=== PATIENT | female | born 1955 | race African-American/Black ===

== ENCOUNTER 2017-12-31 17:11 | Inpatient (IN) | payer OTHER ==
[2017-12-31] MEDS: FUROSEMIDE 40 MG TAB PO (18:54)
[2017-12-31] MEDS ORDERED: GLUCOSE GEL 15 GRAM TUBE BUCCAL (19:00)
[2017-12-31] MEDS ORDERED: GLUCOSE GEL 15 GRAM TUBE PO ×2 (19:00)
[2017-12-31] MEDS ORDERED: DEXTROSE 50% 50 ML SYRINGE IV ×2 (19:00)
[2017-12-31] MEDS ORDERED: GLUCAGON 1 MG INJ IM (19:00)
[2017-12-31] MEDS ORDERED: hydrALAzine 20 MG INJ IV (20:00)
[2017-12-31] MEDS: LISINOPRIL 20 MG TAB PO (20:49)
[2017-12-31] MEDS: GABAPENTIN 300 MG CAP PO (20:49)
[2017-12-31] MEDS: HYDROCODONE/APAP (10/325) TAB PO (20:49)
[2017-12-31] MEDS: ATORVASTATIN 20 MG TAB PO (20:49)
[2017-12-31] MEDS: INSULIN ASPART [NOVOLOG] 3 ML PEN SC (20:50)
[2017-12-31] MEDS: ENOXAPARIN 100 MG/ML SYG SC (20:56)
[2018-01-01] MEDS: ACCU-CHEK XX (01:34)
[2018-01-01] MEDS: PANTOPRAZOLE (EC) 40 MG TAB PO (05:39)
[2018-01-01] MEDS: FUROSEMIDE 40 MG TAB PO (05:39)
[2018-01-01] MEDS: HYDROCODONE/APAP (5/325) TAB PO (05:44)
[2018-01-01 07:47] LABS: ADD MAN DIFF? NO
[2018-01-01 07:53] LABS: ABNORMAL IP MESSAGE 1; BASOPHILS % 0.6 % (0.0-2.0); EOSINOPHILS # 0.5 10^3/ul (0.0-0.5); HEMOGLOBIN 11.9 g/dl (12.0-16.0); LYMPHOCYTES # 1.5 10^3/ul (0.8-2.9); LYMPHOCYTES % 23.6 % (15.0-51.0); MEAN CORPUSCULAR HEMOGLOBIN 20.7 pg (29.0-33.0); MEAN CORPUSCULAR VOLUME 71.2 fl (82.0-101.0); MEAN PLATELET VOLUME 10.7 fl (7.4-10.4); MONOCYTE # 0.7 10^3/ul (0.3-0.9); MONOCYTES % 10.6 % (0.0-11.0); NEUTROPHIL # 3.7 10^3/ul (1.6-7.5); NEUTROPHILS % 57.6 % (39.0-77.0); NUCLEATED RED BLOOD CELLS # 0.1 10^3/ul (0.0-0.0); NUCLEATED RED BLOOD CELLS% 0.8 /100WBC (0.0-0.0); PLATELET COUNT 284 10^3/UL (140-415); RED BLOOD COUNT 5.76 10^6/ul (4.20-5.40)
[2018-01-01 07:53] LABS: WHITE BLOOD COUNT 6.4 10^3/ul (4.8-10.8)
[2018-01-01] MEDS: INSULIN ASPART [NOVOLOG] 3 ML PEN SC ×4 (07:55→21:00)
[2018-01-01 07:57] LABS: POSITIVE DIFF @See below
[2018-01-01 08:15] LABS: BLOOD UREA NITROGEN 15 mg/dl (7-20); CALCIUM 8.7 mg/dl (8.4-10.2); CHLORIDE 97 mmol/L (97-110); CREATININE 1.05 mg/dl (0.44-1.00); GLUCOSE 77 mg/dl (70-220); POTASSIUM 4.3 mmol/L (3.5-5.1); SODIUM 144 mmol/L (135-144)
[2018-01-01] MEDS: HYDROCODONE/APAP (10/325) TAB PO ×2 (08:26→22:12)
[2018-01-01] MEDS: ASPIRIN (EC) 81 MG TAB PO (08:26)
[2018-01-01] MEDS: GABAPENTIN 300 MG CAP PO ×2 (08:26→22:11)
[2018-01-01] MEDS: LISINOPRIL 20 MG TAB PO ×2 (08:27→22:12)
[2018-01-01] MEDS: AMLODIPINE 5 MG TAB PO (08:27)
[2018-01-01] MEDS: ENOXAPARIN 100 MG/ML SYG SC ×2 (08:32→22:21)
[2018-01-01 08:35] LABS: ANION GAP 9 (8-16)
[2018-01-01 08:36] LABS: CARBON DIOXIDE 42 mmol/L (21-31)
[2018-01-01] MEDS: FUROSEMIDE 40 MG INJ IV (17:46)
[2018-01-01 19:47] LABS: ADD UMIC NO; UR ASCORBIC ACID NEGATIVE (NEGATIVE); UR BILIRUBIN (Dip) NEGATIVE (NEGATIVE); UR BLOOD (Dip) NEGATIVE (NEGATIVE); UR CLARITY CLEAR (CLEAR); UR COLOR COLORLESS (YELLOW); UR GLUCOSE (Dip) NEGATIVE (NEGATIVE); UR KETONES (Dip) NEGATIVE (NEGATIVE); UR LEUKOCYTE ESTERASE (Dip) NEGATIVE Leu/ul (NEGATIVE); UR NITRITE (Dip) NEGATIVE (NEGATIVE); UR SPECIFIC GRAVITY (Dip) 1.004 (1.003-1.030); UR TOTAL PROTEIN (Dip) NEGATIVE (NEGATIVE); UR UROBILINOGEN (Dip) NEGATIVE (NEGATIVE)
[2018-01-01] MEDS: ALBUTEROL/IPRATROPIUM (NEB) 3 ML AMP HHN ×2 (20:33→20:34)
[2018-01-01] MEDS: ATORVASTATIN 20 MG TAB PO (22:11)
[2018-01-02 00:03] LABS: Arterial Base Excess 14.9 mmol/L (-3.0-3); Arterial Blood Gas Oxygen Sat 90.2 mmHG (95.0-98.0); Arterial COHb 1.9 % (0.0-3.0); Arterial HCO3 41.3 mmol/L (22.0-26.0); Arterial MetHb 0.5 % (0.0-1.5); Arterial Total Hemglobin 13.4 g/dl (12.0-18.0); Arterial pCO2 58.3 mmhg (35-45); MODE NASAL CANNULA; Site Right Brachial
[2018-01-02] MEDS: ALBUTEROL/IPRATROPIUM (NEB) 3 ML AMP HHN ×6 (00:50→20:26)
[2018-01-02] MEDS: ACCU-CHEK XX (02:00)
[2018-01-02] MEDS: ACETAZOLAMIDE 250 MG TAB PO ×3 (02:22→20:39)
[2018-01-02] MEDS: HYDROCODONE/APAP (5/325) TAB PO (05:22)
[2018-01-02] MEDS: PANTOPRAZOLE (EC) 40 MG TAB PO (05:22)
[2018-01-02] MEDS: FUROSEMIDE 40 MG INJ IV (05:30)
[2018-01-02 07:33] LABS: ADD MAN DIFF? NO
[2018-01-02 07:36] LABS: WHITE BLOOD COUNT 6.4 10^3/ul (4.8-10.8)
[2018-01-02 07:36] LABS: ABNORMAL IP MESSAGE 1; BASOPHILS % 0.6 % (0.0-2.0); EOSINOPHILS # 0.4 10^3/ul (0.0-0.5); EOSINOPHILS % 6.3 % (0.0-7.0); HEMATOCRIT 43.8 % (37.0-47.0); HEMOGLOBIN 12.3 g/dl (12.0-16.0); LYMPHOCYTES # 1.7 10^3/ul (0.8-2.9); LYMPHOCYTES % 26.6 % (15.0-51.0); MEAN CORPUSCULAR HEMOGLOBIN 20.1 pg (29.0-33.0); MEAN CORPUSCULAR HGB CONC 28.1 g/dl (32.0-37.0); MEAN CORPUSCULAR VOLUME 71.6 fl (82.0-101.0); MONOCYTE # 0.7 10^3/ul (0.3-0.9); MONOCYTES % 10.4 % (0.0-11.0); NEUTROPHIL # 3.5 10^3/ul (1.6-7.5); NEUTROPHILS % 55.5 % (39.0-77.0); NUCLEATED RED BLOOD CELLS% 0.3 /100WBC (0.0-0.0); PLATELET COUNT 293 10^3/UL (140-415); RED BLOOD COUNT 6.12 10^6/ul (4.20-5.40); RED CELL DISTRIBUTION WIDTH 23.9 % (11.5-14.5)
[2018-01-02 07:39] LABS: POSITIVE DIFF @See below
[2018-01-02] MEDS: INSULIN ASPART [NOVOLOG] 3 ML PEN SC ×4 (07:55→20:54)
[2018-01-02 07:59] LABS: PHOSPHORUS 5.3 mg/dl (2.5-4.9)
[2018-01-02 07:59] LABS: BLOOD UREA NITROGEN 16 mg/dl (7-20); CALCIUM 9.2 mg/dl (8.4-10.2); CHLORIDE 92 mmol/L (97-110); CREATININE 1.27 mg/dl (0.44-1.00); GLUCOSE 100 mg/dl (70-220); MAGNESIUM 1.7 mg/dl (1.7-2.5); POTASSIUM 4.1 mmol/L (3.5-5.1); SODIUM 143 mmol/L (135-144)
[2018-01-02 08:06] LABS: ANION GAP 16 (8-16)
[2018-01-02 08:10] LABS: CARBON DIOXIDE 39 mmol/L (21-31)
[2018-01-02] MEDS: ASPIRIN (EC) 81 MG TAB PO (08:26)
[2018-01-02] MEDS: GABAPENTIN 300 MG CAP PO ×2 (08:27→20:38)
[2018-01-02] MEDS: LISINOPRIL 20 MG TAB PO ×2 (08:28→20:38)
[2018-01-02] MEDS: HYDROCODONE/APAP (10/325) TAB PO ×2 (08:29→20:39)
[2018-01-02] MEDS: ENOXAPARIN 100 MG/ML SYG SC ×2 (08:32→20:53)
[2018-01-02 18:31] LABS: TROPONIN-I 0.019 ng/ml (0.00-0.12)
[2018-01-02] MEDS: ATORVASTATIN 20 MG TAB PO (20:38)
[2018-01-03] MEDS: ALBUTEROL/IPRATROPIUM (NEB) 3 ML AMP HHN ×6 (00:53→20:18)
[2018-01-03] MEDS: ACCU-CHEK XX (02:00)
[2018-01-03] MEDS: PANTOPRAZOLE (EC) 40 MG TAB PO (05:52)
[2018-01-03 07:44] LABS: TROPONIN-I 0.029 ng/ml (0.00-0.12)
[2018-01-03] MEDS: INSULIN ASPART [NOVOLOG] 3 ML PEN SC ×4 (07:49→20:33)
[2018-01-03] MEDS: LISINOPRIL 20 MG TAB PO ×2 (08:21→20:32)
[2018-01-03] MEDS: GABAPENTIN 300 MG CAP PO ×2 (08:21→20:32)
[2018-01-03] MEDS: ACETAZOLAMIDE 250 MG TAB PO ×2 (08:21→20:32)
[2018-01-03] MEDS: ASPIRIN (EC) 81 MG TAB PO (08:21)
[2018-01-03] MEDS: ENOXAPARIN 100 MG/ML SYG SC ×2 (08:26→21:00)
[2018-01-03] MEDS: HYDROCODONE/APAP (10/325) TAB PO ×2 (08:31→20:33)
[2018-01-03 09:38] LABS: ALANINE AMINOTRANSFERASE 31 IU/L (13-69); ALBUMIN 3.2 g/dl (3.3-4.9); ALKALINE PHOSPHATASE 70 IU/L (42-121); ANION GAP 17 (8-16); ASPARTATE AMINO TRANSFERASE 56 IU/L (15-46); BILIRUBIN,INDIRECT 0.4 mg/dl (0-1.1); BILIRUBIN,TOTAL 0.4 mg/dl (0.2-1.3); BLOOD UREA NITROGEN 20 mg/dl (7-20); CALCIUM 9.3 mg/dl (8.4-10.2); CARBON DIOXIDE 35 mmol/L (21-31); CHLORIDE 96 mmol/L (97-110); CREATININE 1.28 mg/dl (0.44-1.00); GLUCOSE 100 mg/dl (70-220); POTASSIUM 4.8 mmol/L (3.5-5.1); SODIUM 143 mmol/L (135-144); TOTAL PROTEIN 7.2 g/dl (6.1-8.1)
[2018-01-03] MEDS: METOPROLOL 25 MG TAB PO ×2 (13:43→20:33)
[2018-01-03] MEDS: ATORVASTATIN 20 MG TAB PO (20:32)
[2018-01-04] MEDS: ALBUTEROL/IPRATROPIUM (NEB) 3 ML AMP HHN ×4 (01:34→13:28)
[2018-01-04] MEDS: ACCU-CHEK XX (02:00)
[2018-01-04] MEDS: PANTOPRAZOLE (EC) 40 MG TAB PO (05:44)
[2018-01-04 07:11] LABS: ADD MAN DIFF? NO
[2018-01-04 07:24] LABS: WHITE BLOOD COUNT 5.6 10^3/ul (4.8-10.8)
[2018-01-04 07:24] LABS: ABNORMAL IP MESSAGE 1; BASOPHILS % 0.7 % (0.0-2.0); EOSINOPHILS # 0.4 10^3/ul (0.0-0.5); HEMATOCRIT 45.4 % (37.0-47.0); HEMOGLOBIN 12.6 g/dl (12.0-16.0); LYMPHOCYTES # 1.3 10^3/ul (0.8-2.9); LYMPHOCYTES % 23.8 % (15.0-51.0); MEAN CORPUSCULAR HEMOGLOBIN 20.1 pg (29.0-33.0); MEAN CORPUSCULAR HGB CONC 27.8 g/dl (32.0-37.0); MEAN CORPUSCULAR VOLUME 72.4 fl (82.0-101.0); MEAN PLATELET VOLUME 10.3 fl (7.4-10.4); MONOCYTE # 0.7 10^3/ul (0.3-0.9); MONOCYTES % 13.2 % (0.0-11.0); NEUTROPHIL # 3.1 10^3/ul (1.6-7.5); NEUTROPHILS % 54.6 % (39.0-77.0); PLATELET COUNT 300 10^3/UL (140-415); RED BLOOD COUNT 6.27 10^6/ul (4.20-5.40); RED CELL DISTRIBUTION WIDTH 24.4 % (11.5-14.5)
[2018-01-04 07:52] LABS: MAGNESIUM 2.1 mg/dl (1.7-2.5)
[2018-01-04 07:52] LABS: PHOSPHORUS 5.4 mg/dl (2.5-4.9)
[2018-01-04 07:53] LABS: ANION GAP 11 (8-16); BLOOD UREA NITROGEN 22 mg/dl (7-20); CALCIUM 9.7 mg/dl (8.4-10.2); CARBON DIOXIDE 32 mmol/L (21-31); CHLORIDE 105 mmol/L (97-110); CREATININE 1.35 mg/dl (0.44-1.00); GLUCOSE 101 mg/dl (70-220); POTASSIUM 4.8 mmol/L (3.5-5.1); SODIUM 143 mmol/L (135-144)
[2018-01-04] MEDS: INSULIN ASPART [NOVOLOG] 3 ML PEN SC ×3 (07:55→17:37)
[2018-01-04] MEDS: ENOXAPARIN 100 MG/ML SYG SC (08:40)
[2018-01-04] MEDS: METOPROLOL 25 MG TAB PO (08:41)
[2018-01-04] MEDS: GABAPENTIN 300 MG CAP PO (08:42)
[2018-01-04] MEDS: HYDROCODONE/APAP (10/325) TAB PO (08:42)
[2018-01-04] MEDS: ASPIRIN (EC) 81 MG TAB PO (08:42)
[2018-01-04] MEDS: ACETAZOLAMIDE 250 MG TAB PO (08:42)
[2018-01-04] MEDS: LISINOPRIL 20 MG TAB PO (08:43)
[2018-01-04 09:11] LABS: AADO2 Arterial 104.7 mmHg (7.0-24.0); Allen Test ACCEPTAB; Arterial Blood Gas Oxygen Sat 97.3 mmHG (95.0-98.0); Arterial HCO3 28.6 mmol/L (22.0-26.0); Arterial MetHb 0.4 % (0.0-1.5); Arterial Total Hemglobin 13.8 g/dl (12.0-18.0); Arterial pCO2 58.6 mmhg (35-45); MODE NASAL CANNULA; Site Right Radial
[2018-01-04] MEDS ORDERED: METOPROLOL 25 MG TAB PO (21:00)
== END 2018-01-04 18:22 | disposition home or self-care (01) | DRG 291 ==
LOC: TEL 17:11
PROVIDERS: Internal Medicine Nephrology
DX: I13.0 Hypertensive heart and chronic kidney disease with heart failure and stage 1 through stage 4 chronic kidney disease, or unspecified chronic kidney disease (principal); J96.01 Acute respiratory failure with hypoxia; J96.02 Acute respiratory failure with hypercapnia; I50.33 Acute on chronic diastolic (congestive) heart failure; I82.442 Acute embolism and thrombosis of left tibial vein; N18.2 Chronic kidney disease, stage 2 (mild); J44.9 Chronic obstructive pulmonary disease, unspecified; I10 Essential (primary) hypertension; E78.5 Hyperlipidemia, unspecified; M19.90 Unspecified osteoarthritis, unspecified site; J43.1 Panlobular emphysema
CPT/HCPCS: 36600; 71045; 80048; 80053; 81003; 82803; 82962; 83735; 84100; 84484; 85025; 93306; 94640; 94664

== ENCOUNTER 2018-11-26 05:14 | Inpatient (IN) | payer OTHER ==
[2018-11-26] MEDS ORDERED: ALBUTEROL/IPRATROPIUM (NEB) 3 ML AMP HHN (06:30)
[2018-11-26] MEDS ORDERED: BISACODYL (EC) 5 MG TAB PO (06:30)
[2018-11-26] MEDS ORDERED: ACETAMINOPHEN 325 MG TAB PO (06:30)
[2018-11-26] MEDS ORDERED: ONDANSETRON 4 MG INJ IV (06:30)
[2018-11-26] MEDS: LISINOPRIL 20 MG TAB PO ×2 (09:11→20:03)
[2018-11-26] MEDS: GABAPENTIN 300 MG CAP PO ×2 (09:11→20:02)
[2018-11-26] MEDS: APIXABAN 5 MG TABLET PO ×2 (09:12→20:03)
[2018-11-26] MEDS: AMLODIPINE 5 MG TAB PO (09:12)
[2018-11-26] MEDS: PANTOPRAZOLE (EC) 40 MG TAB PO (09:17)
[2018-11-26] MEDS: FUROSEMIDE 20 MG TAB PO (09:18)
[2018-11-26 10:21] LABS: ADD MAN DIFF? NO
[2018-11-26 10:24] LABS: BASOPHILS % 0.3 % (0.0-2.0); EOSINOPHILS # 0.1 10^3/ul (0.0-0.5); EOSINOPHILS % 1.8 % (0.0-7.0); HEMATOCRIT 39.3 % (37.0-47.0); HEMOGLOBIN 11.5 g/dl (12.0-16.0); LYMPHOCYTES % 16.1 % (15.0-51.0); MEAN CORPUSCULAR HEMOGLOBIN 24.2 pg (29.0-33.0); MEAN CORPUSCULAR HGB CONC 29.3 g/dl (32.0-37.0); MEAN CORPUSCULAR VOLUME 82.6 fl (82.0-101.0); MEAN PLATELET VOLUME 9.7 fl (7.4-10.4); MONOCYTE # 0.7 10^3/ul (0.3-0.9); MONOCYTES % 11.5 % (0.0-11.0); NEUTROPHIL # 4.2 10^3/ul (1.6-7.5); NEUTROPHILS % 69.5 % (39.0-77.0); NUCLEATED RED BLOOD CELLS # 0.1 10^3/ul (0.0-0.0); NUCLEATED RED BLOOD CELLS% 1.3 /100WBC (0.0-0.0); PLATELET COUNT 288 10^3/UL (140-415); RED BLOOD COUNT 4.76 10^6/ul (4.20-5.40)
[2018-11-26 10:47] LABS: ALANINE AMINOTRANSFERASE 19 IU/L (13-69); ALBUMIN 3.5 g/dl (3.3-4.9); ALBUMIN/GLOBULIN RATIO 1.02; ALKALINE PHOSPHATASE 97 IU/L (42-121); ANION GAP 9 (5-13); ASPARTATE AMINO TRANSFERASE 39 IU/L (15-46); BILIRUBIN,INDIRECT 0.3 mg/dl (0-1.1); BILIRUBIN,TOTAL 0.3 mg/dl (0.2-1.3); BLOOD UREA NITROGEN 13 mg/dl (7-20); CALCIUM 8.6 mg/dl (8.4-10.2); CARBON DIOXIDE 33 mmol/L (21-31); CHLORIDE 102 mmol/L (97-110); CREATININE 1.02 mg/dl (0.44-1.00); Estimated GFR > 60 mL/min (>60); GLUCOSE 111 mg/dl (70-220); POTASSIUM 4.4 mmol/L (3.5-5.1); SODIUM 144 mmol/L (135-144); TOTAL PROTEIN 6.9 g/dl (6.1-8.1)
[2018-11-26] MEDS: PIPER-TAZO 3.375 GM IV (PMX) 100 ML IVPB ×2 (14:04→21:04)
[2018-11-26] MEDS: SOD CHLORIDE 0.9% 1,000 ML IV (14:05)
[2018-11-26] MEDS: HYDROCODONE/APAP (10/325) TAB PO (20:07)
[2018-11-27] MEDS: HYDROCODONE/APAP (10/325) TAB PO ×3 (02:35→23:03)
[2018-11-27] MEDS: PIPER-TAZO 3.375 GM IV (PMX) 100 ML IVPB ×3 (05:06→22:05)
[2018-11-27] MEDS: PANTOPRAZOLE (EC) 40 MG TAB PO (05:06)
[2018-11-27] MEDS: SOD CHLORIDE 0.9% 1,000 ML IV (05:40)
[2018-11-27 07:23] LABS: ANION GAP 10 (5-13); BLOOD UREA NITROGEN 17 mg/dl (7-20); CALCIUM 8.5 mg/dl (8.4-10.2); CARBON DIOXIDE 32 mmol/L (21-31); CHLORIDE 102 mmol/L (97-110); CREATININE 1.19 mg/dl (0.44-1.00); Estimated GFR 55 mL/min (>60); GLUCOSE 103 mg/dl (70-220); POTASSIUM 4.8 mmol/L (3.5-5.1); SODIUM 144 mmol/L (135-144)
[2018-11-27] MEDS: LISINOPRIL 20 MG TAB PO ×2 (08:32→20:14)
[2018-11-27] MEDS: GABAPENTIN 300 MG CAP PO ×2 (08:32→20:14)
[2018-11-27] MEDS: FUROSEMIDE 20 MG INJ IV (08:33)
[2018-11-27] MEDS: APIXABAN 5 MG TABLET PO ×2 (08:33→20:14)
[2018-11-27] MEDS: AMLODIPINE 5 MG TAB PO (08:33)
[2018-11-27 09:52] LABS: AADO2 Arterial 579.8 mmHg (7.0-24.0); Allen Test ACCEPTAB; Arterial Base Excess 7.2 mmol/L (-3.0-3); Arterial Blood Gas Oxygen Sat 89.6 mmHG (95.0-98.0); Arterial Fraction of Oxyhgb 88.5 % (93.0-99.0); Arterial HCO3 35.7 mmol/L (22.0-26.0); Arterial MetHb 0.2 % (0.0-1.5); Arterial pCO2 71.3 mmhg (35-45); MODE MASK - NRB; Site Right Radial
[2018-11-27] MEDS: FUROSEMIDE 40 MG INJ IV (11:00)
[2018-11-27] MEDS ORDERED: ALBUTEROL/IPRATROPIUM (NEB) 3 ML AMP HHN (11:00)
[2018-11-27] MEDS: ACETAZOLAMIDE 500 MG INJ IV (11:24)
[2018-11-27] MEDS: AZITHROMYCIN 500 MG in SOD CHLORIDE 0.9% 250 ML IVPB (12:54)
[2018-11-27 19:17] LABS: TROPONIN-I < 0.012 ng/ml (0.000-0.120)
[2018-11-28 01:24] LABS: TROPONIN-I 0.018 ng/ml (0.000-0.120)
[2018-11-28] MEDS: PANTOPRAZOLE (EC) 40 MG TAB PO (06:00)
[2018-11-28] MEDS: PIPER-TAZO 3.375 GM IV (PMX) 100 ML IVPB ×3 (06:08→23:29)
[2018-11-28] MEDS: SOD CHLORIDE 0.9% 1,000 ML IV (06:12)
[2018-11-28 07:27] LABS: ANION GAP 8 (5-13); BLOOD UREA NITROGEN 19 mg/dl (7-20); CARBON DIOXIDE 35 mmol/L (21-31); CHLORIDE 97 mmol/L (97-110); CREATININE 1.28 mg/dl (0.44-1.00); Estimated GFR 51 mL/min (>60); GLUCOSE 82 mg/dl (70-220); POTASSIUM 4.9 mmol/L (3.5-5.1); SODIUM 140 mmol/L (135-144)
[2018-11-28 07:32] LABS: TROPONIN-I 0.019 ng/ml (0.000-0.120)
[2018-11-28] MEDS: GABAPENTIN 300 MG CAP PO ×2 (08:33→20:03)
[2018-11-28] MEDS: APIXABAN 5 MG TABLET PO ×2 (08:33→20:04)
[2018-11-28] MEDS: LISINOPRIL 20 MG TAB PO ×2 (08:35→20:03)
[2018-11-28] MEDS: FUROSEMIDE 20 MG INJ IV (08:36)
[2018-11-28] MEDS: AMLODIPINE 5 MG TAB PO (08:36)
[2018-11-28] MEDS: REGADENOSON 0.4 MG/5 ML SYG (13:01)
[2018-11-28] MEDS: AZITHROMYCIN 500 MG in SOD CHLORIDE 0.9% 250 ML IVPB (13:52)
[2018-11-28 14:52] LABS: AADO2 Arterial 136.7 mmHg (7.0-24.0); Arterial Base Excess 4.7 mmol/L (-3.0-3); Arterial Blood Gas Oxygen Sat 94.8 mmHG (95.0-98.0); Arterial COHb 1.2 % (0.0-3.0); Arterial Fraction of Oxyhgb 93.4 % (93.0-99.0); Arterial HCO3 31.4 mmol/L (22.0-26.0); Arterial MetHb 0.3 % (0.0-1.5); Arterial pCO2 56.1 mmhg (35-45); MODE NASAL CANNULA; Site LB
[2018-11-28] MEDS: HYDROCODONE/APAP (10/325) TAB PO (19:55)
[2018-11-29] MEDS: HYDROCODONE/APAP (10/325) TAB PO ×3 (05:36→21:04)
[2018-11-29] MEDS: PIPER-TAZO 3.375 GM IV (PMX) 100 ML IVPB ×3 (05:37→21:06)
[2018-11-29] MEDS: PANTOPRAZOLE (EC) 40 MG TAB PO (05:37)
[2018-11-29] MEDS: SOD CHLORIDE 0.9% 1,000 ML IV (05:39)
[2018-11-29] MEDS: GABAPENTIN 300 MG CAP PO ×2 (08:05→20:37)
[2018-11-29] MEDS: APIXABAN 5 MG TABLET PO ×2 (08:08→20:37)
[2018-11-29] MEDS: AMLODIPINE 5 MG TAB PO (08:09)
[2018-11-29] MEDS: LISINOPRIL 20 MG TAB PO (08:10)
[2018-11-29 08:59] LABS: ADD MAN DIFF? NO
[2018-11-29 09:06] LABS: WHITE BLOOD COUNT 4.9 10^3/ul (4.8-10.8)
[2018-11-29 09:06] LABS: BASOPHIL # 0.1 10^3/ul (0.0-0.1); EOSINOPHILS # 0.5 10^3/ul (0.0-0.5); EOSINOPHILS % 9.7 % (0.0-7.0); HEMATOCRIT 40.4 % (37.0-47.0); HEMOGLOBIN 11.8 g/dl (12.0-16.0); LYMPHOCYTES % 21.4 % (15.0-51.0); MEAN CORPUSCULAR HEMOGLOBIN 23.8 pg (29.0-33.0); MEAN CORPUSCULAR HGB CONC 29.2 g/dl (32.0-37.0); MEAN CORPUSCULAR VOLUME 81.6 fl (82.0-101.0); MEAN PLATELET VOLUME 11.1 fl (7.4-10.4); MONOCYTE # 0.7 10^3/ul (0.3-0.9); NEUTROPHIL # 2.6 10^3/ul (1.6-7.5); NEUTROPHILS % 53.1 % (39.0-77.0); NUCLEATED RED BLOOD CELLS% 0.6 /100WBC (0.0-0.0); PLATELET COUNT 332 10^3/UL (140-415); RED BLOOD COUNT 4.95 10^6/ul (4.20-5.40); RED CELL DISTRIBUTION WIDTH 17.4 % (11.5-14.5)
[2018-11-29 09:28] LABS: ANION GAP 9 (5-13); BLOOD UREA NITROGEN 21 mg/dl (7-20); CARBON DIOXIDE 35 mmol/L (21-31); CHLORIDE 98 mmol/L (97-110); CREATININE 1.27 mg/dl (0.44-1.00); Estimated GFR 51 mL/min (>60); GLUCOSE 111 mg/dl (70-220); POTASSIUM 4.1 mmol/L (3.5-5.1); SODIUM 142 mmol/L (135-144)
[2018-11-29 09:33] LABS: PHOSPHORUS 4.4 mg/dl (2.5-4.9)
[2018-11-29 09:33] LABS: MAGNESIUM 2.3 mg/dl (1.7-2.5)
[2018-11-29] MEDS: AZITHROMYCIN 500 MG in SOD CHLORIDE 0.9% 250 ML IVPB (14:44)
[2018-11-29] MEDS: FLUCONAZOLE 200 MG TAB PO (16:33)
[2018-11-29] MEDS: LISINOPRIL 10 MG TAB PO (20:37)
[2018-11-30] MEDS: HYDROCODONE/APAP (10/325) TAB PO (05:24)
[2018-11-30 06:20] LABS: ADD MAN DIFF? NO
[2018-11-30 06:24] LABS: WHITE BLOOD COUNT 4.5 10^3/ul (4.8-10.8)
[2018-11-30 06:24] LABS: BASOPHIL # 0.1 10^3/ul (0.0-0.1); BASOPHILS % 1.1 % (0.0-2.0); EOSINOPHILS # 0.5 10^3/ul (0.0-0.5); HEMATOCRIT 39.6 % (37.0-47.0); HEMOGLOBIN 11.7 g/dl (12.0-16.0); LYMPHOCYTES # 1.2 10^3/ul (0.8-2.9); LYMPHOCYTES % 27.9 % (15.0-51.0); MEAN CORPUSCULAR HGB CONC 29.5 g/dl (32.0-37.0); MEAN CORPUSCULAR VOLUME 81.1 fl (82.0-101.0); MEAN PLATELET VOLUME 10.3 fl (7.4-10.4); MONOCYTE # 0.7 10^3/ul (0.3-0.9); MONOCYTES % 15.1 % (0.0-11.0); NEUTROPHILS % 43.8 % (39.0-77.0); NUCLEATED RED BLOOD CELLS% 0.4 /100WBC (0.0-0.0); PLATELET COUNT 321 10^3/UL (140-415); RED BLOOD COUNT 4.88 10^6/ul (4.20-5.40); RED CELL DISTRIBUTION WIDTH 17.5 % (11.5-14.5)
[2018-11-30] MEDS: PIPER-TAZO 3.375 GM IV (PMX) 100 ML IVPB (06:43)
[2018-11-30] MEDS: PANTOPRAZOLE (EC) 40 MG TAB PO (06:43)
[2018-11-30] MEDS: SOD CHLORIDE 0.9% 1,000 ML IV (06:44)
[2018-11-30 06:59] LABS: ALANINE AMINOTRANSFERASE 23 IU/L (13-69); ALBUMIN 3.4 g/dl (3.3-4.9); ALBUMIN/GLOBULIN RATIO 0.89; ALKALINE PHOSPHATASE 80 IU/L (42-121); ANION GAP 6 (5-13); ASPARTATE AMINO TRANSFERASE 26 IU/L (15-46); BILIRUBIN,INDIRECT 0.2 mg/dl (0-1.1); BILIRUBIN,TOTAL 0.2 mg/dl (0.2-1.3); BLOOD UREA NITROGEN 19 mg/dl (7-20); CALCIUM 9.1 mg/dl (8.4-10.2); CARBON DIOXIDE 34 mmol/L (21-31); CHLORIDE 100 mmol/L (97-110); CREATININE 1.26 mg/dl (0.44-1.00); Estimated GFR 52 mL/min (>60); GLUCOSE 87 mg/dl (70-220); POTASSIUM 4.4 mmol/L (3.5-5.1); SODIUM 140 mmol/L (135-144); TOTAL PROTEIN 7.2 g/dl (6.1-8.1)
[2018-11-30] MEDS: GABAPENTIN 300 MG CAP PO (08:39)
[2018-11-30] MEDS: AMLODIPINE 5 MG TAB PO (08:40)
[2018-11-30] MEDS: LISINOPRIL 10 MG TAB PO (08:40)
[2018-11-30] MEDS: FLUCONAZOLE 200 MG TAB PO (08:40)
[2018-11-30] MEDS: APIXABAN 5 MG TABLET PO (08:40)
[2018-11-30 11:03] LABS: AADO2 Arterial 123.9 mmHg (7.0-24.0); Allen Test ACCEPTAB; Arterial Base Excess 6.2 mmol/L (-3.0-3); Arterial Blood Gas Oxygen Sat 93.7 mmHG (95.0-98.0); Arterial COHb 0.8 % (0.0-3.0); Arterial Fraction of Oxyhgb 92.7 % (93.0-99.0); Arterial HCO3 34.6 mmol/L (22.0-26.0); Arterial MetHb 0.3 % (0.0-1.5); Arterial pCO2 69.3 mmhg (35-45); MODE NASAL CANNULA; Site Right Radial
== END 2018-11-30 14:56 | disposition left against medical advice (07) | DRG 193 ==
LOC: TEL 05:14
PROC: 4A133R1 Monitoring of Arterial Saturation, Peripheral, Percutaneous Approach (ICD-10-PCS; principal; 2018-11-27)
DX: J18.9 Pneumonia, unspecified organism (principal); I50.33 Acute on chronic diastolic (congestive) heart failure; D68.69 Other thrombophilia; I42.9 Cardiomyopathy, unspecified; J96.12 Chronic respiratory failure with hypercapnia; J96.11 Chronic respiratory failure with hypoxia; I13.0 Hypertensive heart and chronic kidney disease with heart failure and stage 1 through stage 4 chronic kidney disease, or unspecified chronic kidney disease; E66.9 Obesity, unspecified; Z68.31 Body mass index [BMI] 31.0-31.9, adult; R00.1 Bradycardia, unspecified; N18.9 Chronic kidney disease, unspecified; J44.9 Chronic obstructive pulmonary disease, unspecified; E78.5 Hyperlipidemia, unspecified; Z86.718 Personal history of other venous thrombosis and embolism; Z99.81 Dependence on supplemental oxygen; Z79.01 Long term (current) use of anticoagulants; Z79.82 Long term (current) use of aspirin; Z91.19 Patient's noncompliance with other medical treatment and regimen; Z87.891 Personal history of nicotine dependence; Z86.711 Personal history of pulmonary embolism
CPT/HCPCS: 36600; 71045; 78452; 78582; 80048; 80053; 82803; 83735; 84100; 84439; 84443; 84484; 85025; 87070; 93017; 93306